=== PATIENT | female | born 1985 | race Caucasian/White ===

== ENCOUNTER 2020-03-09 12:44 | Emergency (ER) | payer MEDICAID ==
[~2020-03-09] VITALS: Ht 167.6 cm; Wt 59.0 kg
[2020-03-09] MEDS ORDERED: diphenhydrAMINE HCL 50 MG CAPSULE ONE (13:09)
[2020-03-09] MEDS ORDERED: EPINEPHRINE (1:1000) 1 MG/ML AMPUL ONE (13:09)
[2020-03-09] MEDS ORDERED: FAMOTIDINE (20 MG) 20 MG TABLET ONE (13:10)
[2020-03-09] MEDS ORDERED: predniSONE 20 MG TABLET ONE (13:10)
[2020-03-09 13:17] VITALS: BP 151/99
--- NOTE | 2020-03-09 13:18 | NUR ---
PATIENT A/OX4, BREATHING EVEN AND UNLABORED, NO SOB NOTED. AIRWAY CLEAR.
[2020-03-09] MEDS ORDERED: predniSONE 10 MG TABLET PO ONE (13:30)
[2020-03-09] MEDS ORDERED: EPINEPHRINE (1:1000) MDV 30 MG/30ML VIAL SUBCUT ONE (13:30)
[2020-03-09] MEDS ORDERED: FAMOTIDINE (20 MG) 20 MG TABLET PO ONE (13:30)
[2020-03-09] MEDS ORDERED: diphenhydrAMINE HCL 50 MG CAPSULE PO ONE (13:30)
--- NOTE | 2020-03-09 13:34 | NUR ---
Patient discharged to home in stable condition. Written and verbal after care instructions given. Patient verbalizes understanding of instruction.
== END 2020-03-09 13:35 | disposition home or self-care (01) ==
LOC: ER 12:44
DX: L50.8 Other urticaria (principal)
CPT/HCPCS: 96372; 99284; J0171 ×2; J7512; Q0163

== ENCOUNTER 2020-03-10 09:42 | Emergency (ER) | payer MEDICAID ==
[~2020-03-10] VITALS: Ht 167.6 cm; Wt 59.0 kg
[2020-03-10 09:48] VITALS: BP 131/78
[2020-03-10] MEDS ORDERED: methylPREDNISolone SOD SUCC 125 MG/2ML VIAL IM ONE (10:00)
[2020-03-10] MEDS ORDERED: methylPREDNISolone SOD SUCC 125 MG/2ML VIAL ONE (10:06)
--- NOTE | 2020-03-10 10:13 | NUR ---
Patient awake alert nobn distress no Sob lungs clear 99 % RA able to speak full sentences agrees to follw up PMD in AM
--- NOTE | 2020-03-10 10:13 | NUR ---
Patient discharged to home in stable condition. Written and verbal after care instructions given. Patient verbalizes understanding of instruction.
--- NOTE | 2020-03-10 10:29 | NUR ---
Patient discharged to home in stable condition. Written and verbal after care instructions given. Patient verbalizes understanding of instruction.
== END 2020-03-10 10:30 | disposition home or self-care (01) ==
LOC: ER 09:44
DX: L50.9 Urticaria, unspecified (principal); Z88.1 Allergy status to other antibiotic agents; Z60.2 Problems related to living alone
CPT/HCPCS: 96372; 99283; J2930